=== PATIENT | female | born 1965 | race Caucasian/White ===

== ENCOUNTER 2024-08-06 17:35 | Emergency (ER) | payer OTHER, SELFPAY ==
[2024-08-06 17:38] VITALS: BP 101/64; PULSE 91; RESP 16; TEMP 36.8; O2SAT 99; BMI 23.2
--- NOTE | 2024-08-06 17:40 | ED_ITS ---
HPI - Skin/Abscess/Foreign Bdy General Chief complaint: Skin/Abscess/Foreign Body Stated complaint: boil left upper chest Related Data Allergies Allergy/AdvReac Type Severity Reaction Status Date / Time atorvastatin Allergy Unknown Verified 08/06/24 17:45 [facility] Social History Social History Advance Directives: No Advance Directives Information Provided: No Do you have a plan to hurt others: No Plan Physical Exam Vital Signs: Vital Signs: Last Vital Signs Temp 98.2 F 08/06/24 17:38 Pulse 91 08/06/24 17:38 Resp 16 08/06/24 17:38 BP 101/64 08/06/24 17:38 Pulse Ox 99 08/06/24 17:38 O2 Del Method Room Air 08/06/24 17:38 BMI result Body Mass Index 23.2 Course Course Course Narrative: This is an RME: Additional HPI, ROS, PE not included below will be deferred to primary provider. RME assessment and note performed by: Rosa Alonzo PA-C This is a 82-uthg-woc-female, with a hx of 3 mini strokes - 2 bleeding , diana kathi, who presents to the ER with complaints of lump on left side of chest x 1 week.Had it several months ago and drained on its own. Left anterior chest with erythema, edema, warmth, induration and fluctuance, TTP. Plan: incision and drainage Reevaluation(s) Reevaluation #1: Patient left without completing treatment. Discharge Plan Discharge Clinical Impression: Abscess Patient Disposition: Left W/O Completing Treatment Discharge Date/Time: 08/06/24 20:03
--- NOTE | 2024-08-06 19:54 | PC.NURSE ---
no answer from [facility] at 1914, 1929, and 1953
== END 2024-08-06 20:03 | disposition left against medical advice (07) ==
PROVIDERS: Emergency Provider Emergency Medicine; PCP Internal Medicine
DX: L02.213 Cutaneous abscess of chest wall (principal)
CPT/HCPCS: 99281